=== PATIENT | male | born 1960 | race Caucasian/White ===

== ENCOUNTER → 2018-07-18 | Outpatient (CLI) | payer OTHER ==
--- NOTE | 2018-07-18 12:54 | KCIC ---
Three-view lumbar spine dated 07/18/2018. No comparison available. Clinical data indication: Low back pain. FINDINGS: 3 views lumbar spine show normal sagittal alignment. Vertebral body heights are maintained. Mild endplate hypertrophic changes throughout. 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 No evidence of fracture. IMPRESSION: 1. No acute radiographic abnormality. 2. Mild lower lumbar spondylosis. Electronically signed by: Brian Gusman MD (07/18/2018 12:51 PM) [email or web address]
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
== END | disposition home or self-care (01) ==
LOC: KCIC 12:04
PROVIDERS: ATTEND Family Medicine
DX: M47.896 Other spondylosis, lumbar region (principal); M19.021 Primary osteoarthritis, right elbow
CPT/HCPCS: 72100; 73070